=== PATIENT | male | born 1970 | race Caucasian/White ===

== ENCOUNTER → 2017-08-10 | Outpatient (CLI) | payer OTHER | END | disposition home or self-care (01) | LOC: RAH 07:12 | PROVIDERS: ATTEND Physician Assistant Medical | DX: R05 Cough (principal); R06.02 Shortness of breath | CPT/HCPCS: 71046 ==

== ENCOUNTER → 2018-04-12 | Outpatient (CLI) | payer OTHER ==
[~2018-04-12] MED LIST: GADODIAMIDE 10 MMOL/20 ML ML IV ONE
== END | disposition home or self-care (01) ==
LOC: RAH 14:09
PROVIDERS: ATTEND Internal Medicine Critical Care Medicine
DX: R51 Headache (principal); Z85.89 Personal history of malignant neoplasm of other organs and systems
CPT/HCPCS: 70553; A9579

== ENCOUNTER → 2018-04-27 | Outpatient (CLI) | payer OTHER | END | disposition home or self-care (01) | LOC: RAH 13:34 | PROVIDERS: ATTEND Internal Medicine Critical Care Medicine | DX: I86.1 Scrotal varices (principal); N43.3 Hydrocele, unspecified; L72.0 Epidermal cyst | CPT/HCPCS: 76870 ==

== ENCOUNTER → 2019-04-10 | Outpatient (CLI) | payer OTHER | END | disposition home or self-care (01) | LOC: RAH 09:19 | PROVIDERS: ATTEND Internal Medicine Critical Care Medicine | DX: S10.93XD Contusion of unspecified part of neck, subsequent encounter (principal); M47.812 Spondylosis without myelopathy or radiculopathy, cervical region; X58.XXXD Exposure to other specified factors, subsequent encounter | CPT/HCPCS: 72040 ==